=== PATIENT | male | born 1955 | race Caucasian/White ===

== ENCOUNTER 2020-06-21 09:33 | Emergency (ER) | payer MEDICARE, SELFPAY ==
[2020-06-21 09:42] VITALS: BP 168/86; PULSE 88; RESP 16; TEMP 36.4; O2SAT 100
--- NOTE | 2020-06-21 10:08 | ED.EAR ---
HPI - Ear Problem General Chief complaint: Ear Stated complaint: R/ear pain Source: patient Mode of arrival: ambulatory Limitations: no limitations History of Present Illness HPI Narrative: The patient, on few meds non-smoker/rare drinker, presents with right ear discomfort. Patient states he wears hearing aids and has noticed right ear discomfort and scant foul drainage x 2 days. No fever measured, facial changes, cough, shortness of breath, distant travel history, loss of taste/smell. He requests refill of BP meds Related Data Allergies Allergy/AdvReac Type Severity Reaction Status Date / Time No Known Allergies Allergy Verified 06/21/20 09:46 Review of Systems Review of Systems: Narrative: General/Constitutional: No weight loss,fever Eyes: N0: Redness,discharge Ears/Nose/Throat: No: Epistaxis;+ ear discharge Respiratory: Denies: Hemoptysis Gastrointestinal: No Vomiting, Bleeding-rectal Skin: No Lumps, eruption No All systems reviewed & are unremarkable except as noted in HPI and below PMFSH Social History Social History Smoking status: Never smoker Alcohol intake: never Comments At time of signature, agree with nursing past medical, surgical, social and family history. There is no relevant family history pertinent to the presenting complaint Exam Narrative: Exam Narrative: General Appearance: Well appearing, , Conjunctiva clear Neurological: A&O x3, , CN 2-10 intact inc CN7 , Normal affect Ears: R EAC with mucopus; Left External ear normal, Auditory canal normal Nose: Normal nose Mouth/Throat: Normal appearing Supple, Respiratory: Airway patent, No respiratory distress, Skin: Warm, Dry, Normal color Course Vital Signs Vital signs: Vital Signs Temperature 97.6 F 06/21/20 09:42 Pulse Rate 88 06/21/20 09:42 Respiratory Rate 16 06/21/20 09:42 Blood Pressure 168/86 H 06/21/20 09:42 Pulse Oximetry 100 06/21/20 09:42 Temperature 97.6 F 06/21/20 09:42 Pulse Rate 88 06/21/20 09:42 Respiratory Rate 16 06/21/20 09:42 Blood Pressure 168/86 H 06/21/20 09:42 Pulse Oximetry 100 06/21/20 09:42 Medical Decision Making Vital Signs Vital Signs: Vital Signs Temperature 97.6 F 06/21/20 09:42 Pulse Rate 88 06/21/20 09:42 Respiratory Rate 16 06/21/20 09:42 Blood Pressure 168/86 H 06/21/20 09:42 Pulse Oximetry 100 06/21/20 09:42 Temperature 97.6 F 06/21/20 09:42 Pulse Rate 88 06/21/20 09:42 Respiratory Rate 16 06/21/20 09:42 Blood Pressure 168/86 H 06/21/20 09:42 Pulse Oximetry 100 06/21/20 09:42 Discharge Plan Discharge Clinical Impression: Otitis externa Qualifiers: Otitis externa type: unspecified type Chronicity: acute Laterality: right Qualified Code(s): H60.501 - Unspecified acute noninfective otitis externa, right ear Patient Disposition: Home, Self-Care Condition: Stable Instructions: Antibiotic Form, Otitis Externa (ED) Prescriptions: New ciprofloxacin HCl [Cipro] 500 mg tablet 500 mg PO Q12H Qty: 7 RF: 0 quinapril 10 mg tablet 10 mg PO DAILY Qty: 7 RF: 0 Cipro HC 0.2-1 % drops,suspension 3 drop EACH EAR Q12H 7 Days Qty: 10 RF: 1 No Action quinapril 10 mg tablet 10 mg PO DAILY Qty: 90 RF: 1 simvastatin 10 mg tablet 10 mg PO DAILY Qty: 90 RF: 1 Interventions: Discharge Disposition Last Done: 06/21/20 10:21 Follow-up/Referrals: Alona Mckenzie DO [Primary Care Provider] - Discharge Date/Time: 06/21/20 10:22
== END 2020-06-21 10:22 | disposition home or self-care (01) ==
PROVIDERS: Emergency Provider Emergency Medicine; PCP Family Medicine
DX: H60.501 Unspecified acute noninfective otitis externa, right ear (principal); E78.00 Pure hypercholesterolemia, unspecified; I10 Essential (primary) hypertension
CPT/HCPCS: 99213; G0463

== ENCOUNTER 2022-10-03 10:31 | Outpatient (CLI) | payer MEDICARE, SELFPAY ==
[2022-10-03 16:24] LABS: Kit Draw Collected
== END 2022-10-03 10:32 | disposition home or self-care (01) ==
PROVIDERS: PCP Family Medicine; Visit Provider Family Medicine
DX: E87.5 Hyperkalemia (principal)
CPT/HCPCS: 36415

== ENCOUNTER 2023-08-21 12:48 | Emergency (ER) | payer MEDICARE, SELFPAY ==
[2023-08-21] VITALS (20 sets, daily range): BP systolic 113–132; BP diastolic 63–87; PULSE 71–99; RESP 13–19; TEMP 36.3; O2SAT 97–100
--- NOTE | 2023-08-21 12:48 | ECG_ITS ---
Measurements Intervals [place] Rate: 75 P: 13 UT: 191 QRS: 5 QRSD: 93 T: 22 QT: 393 QTc: 441 Interpretive Statements SINUS RHYTHM INFERIOR INFARCT, AGE INDETERMINATE ABNORMAL ECG NO PREVIOUS ECG AVAILABLE FOR COMPARISON Electronically Signed On 08-21-2023 13:12:49 CDT by Sanford Calabrese D.O.
[2023-08-21 13:11] LABS: Basophils Absolute Auto 0.1 K/mm3 (0.0-0.1); Eosinophils Absolute Auto 0.1 K/mm3 (0-0.3); Immature Granulocyte Absolute 0.05 K/mm3 (0.00-0.031); Immature Granulocyte Percent A 0.5 % (0-0.5); Lymphocytes Percent Auto 31.3 % (18.3-44.2); Mean Corpuscular HGB Conc 33.3 g/dl (32-36); Mean Corpuscular Hemoglobin 32.1 pg (26-34); Mean Corpuscular Volume 96.3 fl (80-100); Mean Platelet Volume 9.5 fl (7.4-10.4); Monocytes Percent Auto 9.7 % (2.6-8.5); Neutrophils Absolute Auto 5.8 K/mm3 (1.3-6.7); Neutrophils Percent Auto 56.5 % (45.5-73.1); Platelet Count Result 241 k/mm3 (150-375); Red Blood Count 4.36 M/mm3 (4.6-6.20); Red Cell Distribution Width 12.8 % (11.5-14.5); White Blood Count 10.2 K/mm3 (4.5-10.0)
[2023-08-21 13:19] LABS: Alanine Aminotransferase 22 U/L (6-50); Albumin Level 3.8 g/dL (3.5-5.1); Alkaline Phosphatase 52 U/L (38-126); Anion Gap 8 mmol/L (8-16); Aspartate Amino Transferase 22 U/L (17-59); Bilirubin,Total 0.5 mg/dL (0.2-1.3); Blood Urea Nitrogen 21 mg/dL (9-20); Calcium 8.1 mg/dL (8.4-10.2); Carbon Dioxide 23 mmol/L (22-30); Chloride 108 mmol/L (98-107); Estimated CRCL calculation 64 ml/min; Estimated Glomerular Filt Rate > 60; Glucose 132 mg/dL (65-110); Potassium 3.9 mmol/L (3.4-5.0); Sodium 139 mmol/L (137-145)
[2023-08-21] MEDS: ONDANSETRON INJ 4 MG/2 ML VIAL IV PUSH (13:50)
--- NOTE | 2023-08-21 14:27 | ED.DIZZY ---
HPI - Dizziness General Chief Complaint: Syncope Stated Complaint: SYNCOPE Time Seen by Provider: 08/21/23 13:06 History of Present Illness HPI Narrative: 67-year-old male presented the emergency department for evaluation after having loss of consciousness with nausea and vomiting. Patient did have an out patient prostate biopsy by Dr. Reed. While patient was driving back home he had onset of urinary urgency and then had a some nausea vomiting and a syncopal episode. states that the syncopal episode lasted just for a very short amount of time but they were unable to measure. When patient regained consciousness he had no confusion. Related Data Allergies Allergy/AdvReac Type Severity Reaction Status Date / Time No Known Allergies Allergy Verified 05/23/23 09:04 Review of Systems Review of Systems: All systems reviewed & are unremarkable except as noted in HPI and below PMFSH Past Medical History Medical History (Updated 08/21/23 @ 15:50 by Dakota Sow MD) Actinic keratosis Hepatitis C antibody test negative (07/29/17) Surgical History Surgical History H/O colonoscopy S/P lumbar microdiscectomy Family History Family History Father Family history of cardiovascular disease Hypertension Family history of elevated blood lipids Family history of coronary artery disease Mother Hypertension Family history of elevated blood lipids Sibling Hypertension Family history of elevated blood lipids Social History Social History Smoking status: Never smoker Alcohol intake: never Substance use: never Lack of Transportation: No Lack of Food: Sometimes True Current Housing: I Have Housing Concerned About Future Housing: No Difficulty Paying Gas/Electric Bills: No Difficulty Paying for Meds: No Currently Unemployed: No Education: Bachelor's Degree Difficulty w/ Childcare or Family Care: No Exam Narrative: APPEARANCE: Well appearing, no pain, no distress, well-nourished. HEAD: normocephalic, atraumatic. EYES: PERRLA/EOMI, conjunctivae clear. NOSE: Normal no drainage EARS:TMS clear with good light reflex. THROAT: Pharynx clear, no exudate. NECK: Supple. No adenopathy, no masses. RESPIRATORY: Airway patent, respirations nonlabored. Clear to auscultation bilaterally, no rales, rhonchi, wheezing. CARDIOVASCULAR: Regular rate and rhythm without murmurs rubs or gallops. ABDOMINAL: Soft, nontender, nondistended, normal bowel sounds MUSCULOSKELETAL: Moves all extremities. Strength/ROM intact, No edema, No calf tenderness. NEURO: Alert. Cranial nerves II through XII intact. Grossly intact SKIN: Warm, dry. Normal Color Course Course Emergency Course: 67-year-old male presented ED for evaluation after having a vasovagal episode. Patient was afebrile with leukocytosis and a stable hemoglobin. Patient's chemistries show no acute abnormalities. EKG showed normal sinus rhythm with no significant ST changes. Patient does feel improved. Patient felt to his baseline after the syncopal episode. Patient had normal orthostatic vitals and is tolerating p.o. Patient family are updated on the results of the work-up and they are comfortable with the plan for discharge and close follow-up. Vital Signs Vital signs: Vital Signs Oxygen Delivery Room Air 08/21/23 12:40 Temperature 97.4 F L 08/21/23 12:47 Pulse Rate 85 08/21/23 15:57 Respiratory Rate 17 08/21/23 15:57 Blood Pressure 119/80 08/21/23 15:57 Pulse Oximetry 100 08/21/23 15:57 Oxygen Delivery Room Air 08/21/23 12:40 MDM - Dizziness Differential Diagnosis Differential diagnosis: Likely adverse reaction to drug, benign paroxysmal positional vertigo, orthostatic hypotension and other Lab Data Attestation: I reviewed the patient's lab
== END 2023-08-21 15:59 | disposition home or self-care (01) ==
PROVIDERS: Emergency Provider Emergency Medicine; PCP Family Medicine
DX: R55 Syncope and collapse (principal); R39.15 Urgency of urination; R94.31 Abnormal electrocardiogram [ECG] [EKG]
CPT/HCPCS: 36415; 80053; 85025; 87086; 93005; 96374; 99284; J2405

== ENCOUNTER 2023-09-05 13:26 | Outpatient (CLI) | payer MEDICARE, SELFPAY ==
--- NOTE | ~2023-09-05 | PE_ITS ---
EXAMINATION: PET_PETPSMAST_PT DATE: 09/05/2023 15:53 INDICATION: Malignant neoplasm of prostate. TECHNIQUE: 8.821 mCi of piflufolastat F-18 was administered intravenously. Low dose computed tomograp hy (CT) images were acquired from the base of the brain to the proximal thighs for attenuation correc tion and anatomic localization. Automated exposure control was employed. Dose-length product (DLP) wa s 545 mGy-cm. Positron emission tomography (PET) images were acquired in the same distribution. COMPARISON: None FINDINGS: Head/neck: There are no pathologically enlarged lymph nodes. Chest: The lungs demonstrate mild atelectasis. No pleural effusion. The heart size is normal. There a re coronary artery calcifications. No pericardial effusion. There is mild bilateral gynecomastia. Abdomen/pelvis/proximal thighs: The liver, gallbladder, spleen, pancreas, adrenal glands, and right k idney are normal. There is a 16 mm stone in left kidney. There is mild aortic atherosclerosis. The pr ostate is moderately enlarged. There is focal increased activity in the peripheral zone on the left w ith maximum SUV of 9.4. There is diverticulosis of the colon without evidence of diverticulitis. The appendix is normal. There are no pathologically enlarged lymph nodes. There is no free intraperitonea l fluid. There are benign bone islands in the pelvis and left femoral head. IMPRESSION: 1. Moderately enlarged prostate with focal increased activity in the peripheral zone on the left, con sistent with primary malignancy. No evidence of metastatic disease. Reviewed, dictated and finalized at location A. IMPRESSION: 1. Moderately enlarged prostate with focal increased activity in the peripheral zone on the left, consistent with primary malignancy. No evidence of metastati c disease.
== END 2023-09-05 13:27 | disposition home or self-care (01) ==
PROVIDERS: PCP Family Medicine; Visit Provider Urology
DX: C61 Malignant neoplasm of prostate (principal)
CPT/HCPCS: 78815; A9595

== ENCOUNTER 2023-09-29 13:22 | Outpatient (RCR) | payer MEDICARE, SELFPAY ==
--- NOTE | 2023-09-29 14:42 | PTOPEVAL1 ---
Assessment and note entered by Dayton Cunha, PT, DPT Evaluation Information Assessment Status Evaluation Diagnosis back pain (M54.9) Subjective Information Pt states he has had back pain his whole life. He states years ago he got a discectomy. He states now he just gets a sore or achy back after lifting something too heavy. He states he is having surgery in early Dec and wants to be proactive about his back pain because he knows he will be more inactive. Reported Pain Level Pain Score 1: Self Report Assessment PT Clinical Summary Laurent presents to therapy today for his initial evaluation with a diagnosis of back pain. Today he demonstrates active lumbar ROM that is WNL but feels additional stretch during. He ambulates with decreased trunk motion, a shortened stride length, and lack of terminal hip extension. Today he was education on a home stretching program to complete . D/t not having any pain regularly he would like to complete his HEP and follow up if needed. Plan of Care PT Services Indicated Yes Treatment Frequency and follow up if needed Duration These treatments will address the objective and functional deficits as defined above. The patient will be advanced safely and appropriately in order for the patient to progress towards his/her prior level of function. Additional exercises will be introduced and as well as a comprehensive home exercise program upon discharge, if needed, ?to ensure carryover of functional gains achieved in the clinic. This treatment plan has been reviewed and agreement upon by the patient.
--- NOTE | 2023-12-27 08:12 | PTOPDC ---
Assessment and note entered by Dayton Cunha, PT, DPT Evaluation Information Assessment Status Discharge - Pt Not Present Diagnosis back pain (M54.9) Subjective Information Pt was evaluated on 09/29/23 and it was decided that he would follow up with the clinic if further intervention was needed, he has not followed up. Assessment PT Clinical Summary Laurent was evaluated on 09/29/23 and did not complete any subsequent treatments. He will be discharged at this time. If he needs additional therapy at a later date he will need a new order.
== END 2023-12-27 08:44 | disposition home or self-care (01) ==
LOC: ANHGOSHPT 13:22
PROVIDERS: PCP Family Medicine; Visit Provider Nurse Practitioner
DX: M54.9 Dorsalgia, unspecified (principal)
CPT/HCPCS: 97110; 97116; 97161